=== PATIENT | male | born 1995 | race Caucasian/White ===

== ENCOUNTER 2016-12-11 16:50 | Emergency (ER) | payer OTHER ==
[2016-12-11 16:55] VITALS: BP 139/84
[2016-12-11] MEDS ORDERED: DEXAMETHASONE 10 MG/ML VIAL PO STA (17:07)
[2016-12-11] MEDS ORDERED: DEXAMETHASONE 10 MG/ML VIAL ONE (17:09)
--- NOTE | 2016-12-11 17:10 | ED Physician Documentation ---
PD HPI HEENT - Stated complaint Stated Complaint: R EAR PX - Chief complaint Chief Complaint: Heent - History obtained from History obtained from: Patient - History of Present Illness Timing - onset: How many days ago (4) Timing - duration: Days (4) Timing - details: Gradual onset, Still present Location: Right ear Worsens: Position Associated symptoms: Congestion, Rhinorrhea, Other (ear will not equalize and there is random dizziness) Similar symptoms before: Has not had sx before Recently seen: Not recently seen - Additional information Additional information: 21 y/o male began with a fullness to the right ear and it will pop but only for a brief time. He has some muffled hearing and he does not have much of a cough. He does have some drainage down his throat. Review of Systems Constitutional: reports: Chills, Fatigue. denies: Fever Eyes: denies: Decreased vision Ears: reports: Ear pain, Tinnitus/ringing Nose: reports: Rhinorrhea / runny nose, Congestion Throat: denies: Sore throat Cardiac: denies: Chest pain / pressure, Palpitations Respiratory: reports: Cough. denies: Dyspnea GI: denies: Abdominal Pain, Nausea, Vomiting : denies: Dysuria, Frequency Skin: denies: Rash Musculoskeletal: denies: Neck pain, Back pain, Extremity pain PD PAST MEDICAL HISTORY - Past Medical History Past Medical History: Yes Psych: ADD/ADHD - Past Surgical History Past Surgical History: Yes - Present Medications Home Medications: Ambulatory Orders Medication Instructions Recorded Confirmed Azithromycin [Zithromax] 250 mg PO DAILY #6 tablet 12/11/16 - Allergies Allergies/Adverse Reactions: Allergies Allergy/AdvReac Type Severity Reaction Status Date / Time No Known Drug Allergies Allergy Verified 12/11/16 16:55 - Social History Does the pt smoke?: Yes Smoking Status: Current every day smoker Does the pt drink ETOH?: No Does the pt have substance abuse?: No - Immunizations Immunizations are current?: Yes PD ED PE NORMAL - Vitals Vital signs reviewed: Yes (hypertensive) - General General: Alert and oriented X 3, No acute distress, Well developed/nourished - HEENT HEENT: Atraumatic, PERRL, EOMI, Pharynx benign, Dentition benign, Other (The right TM is mildly inflamed in the basement. The left is clear. ) - Neck Neck: Supple, no meningeal sign, No bony TTP - Cardiac Cardiac: RRR, No murmur - Respiratory Respiratory: No respiratory distress, Clear bilaterally - Abdomen Abdomen: Soft, Non tender - Derm Derm: Normal color, Warm and dry, No rash - Extremities Extremities: No deformity, No edema - Neuro Neuro: No motor deficit, No sensory deficit - Psych Psych: Normal mood, Normal affect Results - Vitals Vitals: Vital Signs - 24 hr 12/11/16 16:53 Temperature 36.3 C L Heart Rate 88 Respiratory 18 Rate Blood Pressure 139/84 H O2 Saturation 99 Oxygen O2 Source Room air PD MEDICAL DECISION MAKING - ED course Complexity details: considered differential, d/w patient ED course: 21 y/o male with symptomatic right OM and this does not appear to be a dense infection. He is treated with decadron 10mg PO and we will put him on some zithromax. Departure - Departure Disposition: 01 Home, Self Care Clinical Impression: Otitis media Qualifiers: Otitis media type: suppurative Laterality: right Chronicity: acute Recurrence: not specified as recurrent Spontaneous tympanic membrane rupture: without spontaneous rupture Qualified Code(s): H66.001 - Acute suppurative otitis media without spontaneous rupture of ear drum, right ear Condition: Stable Instructions: ED Otitis Media Acute Adult Follow-Up: Clay Roth MD [Primary Care Provider] - Prescriptions: Azithromycin [Zithromax] 250 mg PO DAILY #6 tablet Comments: Today in the Emergency Department your blood pressure was elevated. This can happen from the stress of the visit itself, from a current illness or circumstance or from uncontrolled hypertension. If you take blood pressure medications take your usual mediations, have your blood pressure re-checked in an appropriate setting and follow up any elevation with your primary care doctor.
== END 2016-12-11 17:17 | disposition home or self-care (01) ==
LOC: ED 16:50
DX: H66.001 Acute suppurative otitis media without spontaneous rupture of ear drum, right ear (principal); F17.200 Nicotine dependence, unspecified, uncomplicated
CPT/HCPCS: 99283

== ENCOUNTER 2017-01-29 13:44 | Outpatient (CLI) | payer OTHER ==
--- NOTE | 2017-01-29 16:42 | MRI Report ---
EXAM: LEFT CALF/TIBIA MRI WITHOUT CONTRAST EXAM DATE: 01/29/2017 03:13 PM. CLINICAL HISTORY: Left jimenez pain after increased activity. COMPARISON: None. TECHNIQUE: Multiplanar, multisequence T1-weighted and fluid-sensitive sequences of the calf/tibia wit hout contrast. Other: None. FINDINGS: Bones: Marrow signal intensity appears normal. There is increased T2 signal along the medial aspect o f the tibia over its middle third, consistent with jimenez splints. Joint Spaces: Visualized portions of the ankle and knee joints are unremarkable. Tendons: Where visualized, the Achilles and plantaris tendons are intact. Musculature: No edema or fatty atrophy. Other: See above. IMPRESSION: Findings consistent with jimenez splints. No stress fracture. No muscle tear. [facility] MUSCULOSKELET[facility] SECTION Referring Provider Line: [phone] SITE ID: [id number]
== END 2017-01-29 13:45 | disposition home or self-care (01) ==
LOC: DI 13:44
PROVIDERS: ATTEND Orthopaedic Surgery
DX: M79.662 Pain in left lower leg (principal)

== ENCOUNTER 2017-07-16 09:01 | Emergency (ER) | payer OTHER ==
--- NOTE | 2017-07-16 09:20 | ED Physician Documentation ---
PD HPI HEADACHE - Stated complaint Stated Complaint: MIGRAINE - Chief complaint Chief Complaint: General - History obtained from History obtained from: Patient - History of Present Illness Timing - onset: How many days ago (5) Timing - onset during: Light activity Timing - duration: Days (5) Timing - details: Gradual onset, Still present Worst headache ever?: Worst headache ever? (has had similar headaches for few hours or part of a day. No prior similar that lasts this long.) Location: Back, Right Quality: Throbbing Associated symptoms: Nausea. No: Fever, Stiff neck, Vomiting, Weakness, Numbness, Eye pain, Vision changes Improved by: Rest, Dark room. No: Meds Worsened by: Light, Noise, Moving Contributing factors: No: Anticoagulated, Hypertension, Recent illness, Trauma Similar symptoms before: Has not had sx before Recently seen: Not recently seen Review of Systems Constitutional: denies: Fever, Chills Eyes: reports: Photophobia. denies: Loss of vision, Decreased vision Ears: denies: Loss of hearing, Ear pain, Drainage/discharge Nose: denies: Rhinorrhea / runny nose, Congestion Throat: denies: Sore throat Respiratory: denies: Cough GI: denies: Abdominal Pain, Nausea, Vomiting, Diarrhea : denies: Dysuria, Frequency Skin: denies: Rash, Lesions Neurologic: reports: Headache. denies: Focal weakness, Numbness, Difficulty speaking, Confused, Altered mental status, Head injury PD PAST MEDICAL HISTORY - Past Medical History Past Medical History: Yes Neuro: None Psych: ADD/ADHD - Past Surgical History Past Surgical History: Yes - Present Medications Home Medications: Ambulatory Orders Medication Instructions Recorded Confirmed Dexamethasone [Decadron] 4 mg PO DAILY #5 tablet 07/16/17 HYDROcod/ACETAM 5/325 [[place] 5/325] 1 tab PO Q6H PRN #12 tablet 07/16/17 Promethazine [Phenergan] 25 mg PO Q6H PRN #15 tab 07/16/17 Sumatriptan Succinate [Imitrex] 50 mg PO ONCE PRN #5 tablet 07/16/17 - Allergies Allergies/Adverse Reactions: Allergies Allergy/AdvReac Type Severity Reaction Status Date / Time No Known Drug Allergies Allergy Verified 07/16/17 09:13 - Social History Does the pt smoke?: Yes Smoking Status: Current every day smoker Does the pt drink ETOH?: No Does the pt have substance abuse?: No - Immunizations Immunizations are current?: Yes PD ED PE NORMAL - Vitals Vital signs reviewed: Yes - General General: Alert and oriented X 3, No acute distress, Well developed/nourished - HEENT HEENT: Atraumatic, PERRL, EOMI, Ears normal, Pharynx benign - Neck Neck: Supple, no meningeal sign, No adenopathy - Cardiac Cardiac: RRR, No murmur - Respiratory Respiratory: Clear bilaterally - Derm Derm: Normal color, Warm and dry, No rash - Extremities Extremities: No deformity, No tenderness to palpate, Normal ROM s pain - Neuro Neuro: Alert and oriented X 3, 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 Got CT head for screening. No red flags otherwise. ) Departure - Departure Disposition: 01 Home, Self Care Clinical Impression: Migraine headache Qualifiers: Migraine type: without aura Status migrainosus presence: with status migrainosus Intractability: not intractable Qualified Code(s): G43.001 - Migraine without aura, not intractable, with status migrainosus Condition: Stable Record reviewed to determine appropriate education?: Yes Instructions: ED Headache Migraine Follow-Up: Clay Roth MD [Primary Care Provider] - Prescriptions: Dexamethasone [Decadron] 4 mg PO DAILY #5 tablet HYDROcod/ACETAM 5/325 [[place] 5/325] 1 tab PO Q6H PRN #12 tablet PRN Reason: Pain Promethazine [Phenergan] 25 mg PO Q6H PRN #15 tab PRN Reason: Nausea / Vomiting Sumatriptan Succinate [Imitrex] 50 mg PO ONCE PRN #5 tablet PRN Reason: Migraine Comments: This sounds like a migraine headache. Rest today and tomorrow for the remainder of the headache to improve. Use Decadron anti-inflammatory daily for 3-5 more days until completely better. Use Phenergan if needed for nausea. Add Tylenol or hydrocodone if needed for pain. Recheck if current headache does not resolve completely over the next 1-2 days. For future migraines, use Excedrin Migraine or similar type medicine initially. If not improved with that and combine Phenergan along with the Imitrex (sumatriptan) which both target migraine specifically as well as help with nausea. See if those help you with future episodes. It would be unpredictable when or if you get further migraines in the future. Forms: Activity restrictions Discharge Date/Time: 07/16/17 11:18
[2017-07-16] MEDS ORDERED: DEXAMETHASONE 10 MG/ML VIAL PO STA (09:48)
[2017-07-16] MEDS ORDERED: PROMETHAZINE 25 MG TABLET PO STA (09:48)
[2017-07-16] MEDS ORDERED: HYDROcod/ACETAM 5/325 MG TABLET PO STA (09:48)
--- NOTE | 2017-07-16 10:31 | CT Report ---
EXAM: CT HEAD EXAM DATE: 07/16/2017 10:05 AM. CLINICAL HISTORY: Headache for 3-4 days. COMPARISON: None. TECHNIQUE: Multiaxial CT images were obtained from the foramen magnum to the vertex. Reformats: Coron al. IV contrast: None. In accordance with CT protocol optimization, one or more of the following dose reduction techniques w ere utilized for this exam: automated exposure control, adjustment of mA and/or KV based on patient s ize, or use of iterative reconstructive technique. FINDINGS: Parenchyma: No intraparenchymal hemorrhage. No focal mass effect, midline shift, or CT findings of ac juventino infarction. Duff-white differentiation is distinct. Extraaxial Spaces: Normal. No subdural or epidural collections identified. Ventricles: Normal in size and position. Sinuses and Orbits: Imaged paranasal sinuses, orbits, and mastoids show no significant abnormality. Bones: No evidence of fracture or calvarial defect. IMPRESSION: 1. Negative noncontrast brain CT. No intracranial hemorrhage or space-occupying lesion. 2. Clear visualized paranasal sinuses. [facility] Referring Provider Line: [phone] SITE ID: [id number]
[2017-07-16 10:40] VITALS: BP 120/84
== END 2017-07-16 11:18 | disposition home or self-care (01) ==
LOC: ED 09:01
DX: H53.149 Visual discomfort, unspecified (principal); G43.001 Migraine without aura, not intractable, with status migrainosus; F17.200 Nicotine dependence, unspecified, uncomplicated
CPT/HCPCS: 70450; 99283; 99284; A9270; Q0169

== ENCOUNTER 2021-11-28 08:00 | Outpatient (CLI) | payer OTHER | END 2021-11-28 23:59 | disposition home or self-care (01) | LOC: LAB.N 08:00 | PROVIDERS: ATTEND Nurse Practitioner | DX: J06.9 Acute upper respiratory infection, unspecified (principal); Z20.822 Contact with and (suspected) exposure to COVID-19 ==

== ENCOUNTER 2023-08-26 13:30 | Outpatient (CLI) | payer OTHER ==
[2023-08-26 17:50] LABS: BASOPHILS % (AUTO) 0.3 %; EOSINOPHILS # (AUTO) 0.1 10^3/uL (0.0-0.7); EOSINOPHILS % (AUTO) 2.1 %; HGB - HEMOGLOBIN 15.8 g/dL (14.0-18.0); LYMPHOCYTES # (AUTO) 2.2 10^3/uL (1.5-3.5); LYMPHOCYTES % (AUTO) 34.3 %; MEAN CORPUSCULAR HGB CONC 33.6 g/dL (32.0-36.0); MEAN CORPUSCULAR VOLUME 89.4 fL (80.0-94.0); MEAN PLATELET VOLUME 10.1 fL (7.4-11.4); MONOCYTES # (AUTO) 0.5 10^3/uL (0.0-1.0); MONOCYTES % (AUTO) 8.2 %; NEUTROPHILS # (AUTO) 3.5 10^3/uL (1.5-6.6); NEUTROPHILS % (AUTO) 54.9 %; PLT - PLATELET COUNT 290 10^3/uL (130-450); RED BLOOD COUNT 5.26 10^6/uL (4.70-6.10); RED CELL DISTRIBUTION WIDTH 12.6 % (12.0-15.0); WHITE BLOOD COUNT 6.3 x10^3/uL (4.8-10.8)
[2023-08-26 18:12] LABS: ALBUMIN 4.5 g/dL (3.2-5.5); ALBUMIN/GLOBULIN RATIO 1.6 (1.0-2.2); BILIRUBIN,TOTAL 0.6 mg/dL (0.2-1.0); CALCIUM 9.9 mg/dL (8.5-10.3); CREATININE 0.9 mg/dL (0.6-1.3); POTASSIUM 4.1 mmol/L (3.5-4.5); TOTAL PROTEIN 7.3 g/dL (6.4-8.9)
[2023-08-26 18:13] LABS: THYROID STIMULATING HORMONE 1.9 uIU/mL (0.34-5.60)
== END 2023-08-26 13:45 | disposition home or self-care (01) ==
LOC: LAB.N 13:30
PROVIDERS: ATTEND Family Medicine
DX: R42 Dizziness and giddiness (principal); R00.2 Palpitations
CPT/HCPCS: 36415; 80053; 84443; 85025; 85651

== ENCOUNTER 2023-09-20 08:25 | Outpatient (CLI) | payer OTHER ==
--- NOTE | 2023-09-20 11:43 | MRI Report ---
PROCEDURE: Brain WO INDICATIONS: DIZZINESS TECHNIQUE: Noncontrast axial T1 spin echo, axial T2 fast spin echo, sagittal and axial FLAIR, coronal T2 fast sp in echo, axial gradient echo, axial diffusion and ADC through the brain. COMPARISON: CT head 07/16/2017. FINDINGS: Image quality: Excellent. CSF Spaces: Basal cisterns are patent. No extra-axial fluid collections. Ventricles are normal in size and shape. Brain: No intracranial masses or hemorrhage. Duff/white matter interface is normal. Brainstem appe ars normal. Diffusion-weighted images demonstrate no acute ischemic insult. No chronic ischemic ins ults. Normal intravascular flow voids are present. Skull and face: Calvarium has normal marrow signal. Orbits appear normal. Sinuses: Sinuses and mastoids are clear. IMPRESSION: No findings to explain patient's symptoms. No acute intracranial abnormalities. Reviewed by: Elliott Avendano MD on 09/20/2023 11:42 AM PDT Approved by: Elliott Avendano MD on 09/20/2023 11:42 AM PDT Station ID: [id number]
== END 2023-09-20 08:26 | disposition home or self-care (01) ==
LOC: DI 08:25
PROVIDERS: ATTEND Preventive Medicine Aerospace Medicine
DX: R42 Dizziness and giddiness (principal)

== ENCOUNTER 2024-02-18 17:27 | Emergency (ER) | payer OTHER ==
--- NOTE | 2024-02-18 18:13 | XRAY Report ---
PROCEDURE: Chest 1V INDICATIONS: Chest pain TECHNIQUE: One view of the chest was acquired. COMPARISON: None. FINDINGS: Surgical changes and devices: None. Lungs and pleura: No pleural effusions or pneumothorax. Lungs are clear. Mediastinum: Mediastinal contours appear normal. Heart size is normal. Bones and chest wall: No suspicious bony lesions. Overlying soft tissues appear unremarkable. IMPRESSION: No acute cardiopulmonary process. Reviewed by: Carter Koehler MD on 02/18/2024 6:11 PM PDT Approved by: Carter Koehler MD on 02/18/2024 6:11 PM PDT Station ID: [id number]
[2024-02-18 18:28] LABS: BASOPHILS % (AUTO) 0.5 %; EOSINOPHILS # (AUTO) 0.1 10^3/uL (0.0-0.7); EOSINOPHILS % (AUTO) 1.7 %; HCT - HEMATOCRIT 44.9 % (42.0-52.0); HGB - HEMOGLOBIN 15.7 g/dL (14.0-18.0); LYMPHOCYTES # (AUTO) 2.4 10^3/uL (1.5-3.5); LYMPHOCYTES % (AUTO) 29.7 %; MEAN CORPUSCULAR HEMOGLOBIN 30.2 pg (27.0-31.0); MEAN CORPUSCULAR VOLUME 86.3 fL (80.0-94.0); MEAN PLATELET VOLUME 9.5 fL (7.4-11.4); MONOCYTES # (AUTO) 0.8 10^3/uL (0.0-1.0); MONOCYTES % (AUTO) 10.3 %; NEUTROPHILS # (AUTO) 4.7 10^3/uL (1.5-6.6); NEUTROPHILS % (AUTO) 57.6 %; PLT - PLATELET COUNT 321 10^3/uL (130-450); RED CELL DISTRIBUTION WIDTH 12.4 % (12.0-15.0); WHITE BLOOD COUNT 8.2 x10^3/uL (4.8-10.8)
[2024-02-18 18:50] LABS: TROPONIN I HIGH SENSITIVITY < 2.3 ng/L (2.3-19.7)
[2024-02-18 18:51] LABS: ALBUMIN 4.5 g/dL (3.2-5.5); ALBUMIN/GLOBULIN RATIO 1.5 (1.0-2.2); ALKALINE PHOSPHATASE 61 IU/L (42-121); ALT ALANINE AMINOTRANSFERASE 27 IU/L (10-60); AST ASPARTATE AMINOTRANSFERASE 16 IU/L (10-42); BILIRUBIN,TOTAL 0.4 mg/dL (0.2-1.0); BUN - BLOOD UREA NITROGEN 12 mg/dL (6-20); CALCIUM 9.5 mg/dL (8.5-10.3); CARBON DIOXIDE - CO2 26 mmol/L (21-32); CHLORIDE 105 mmol/L (101-111); CREATININE 0.8 mg/dL (0.6-1.3); GFR - MDRD 114 (>89); GLUCOSE 88 mg/dL (74-104); LIPASE 41 U/L (11-82); POTASSIUM 3.8 mmol/L (3.5-4.5); SODIUM 138 mmol/L (135-145); TOTAL PROTEIN 7.5 g/dL (6.4-8.9)
[2024-02-18 18:55] VITALS: O2SAT 98
--- NOTE | 2024-02-18 19:04 | ED Physician Documentation ---
PD HPI CHEST PAIN - Stated complaint Stated Complaint: CHEST PX - Chief complaint Chief Complaint: Cardiac - Additional information Additional information: 28-year-old male with history of hypertension, depression, ADD/ADHD presents emergency department for chest pain. Patient says that he was sitting at home around 1400 watching TV and felt sudden onset chest pain. He attempted to walk around to see if it would go away and then he started experiencing some shortness of breath which led him to come to the emergency department. Patient also says that he send struggling with chronic headache for about the last 2 months he has been seen by his primary care provider but has not found a solution to this. He is on Wellbutrin for his depression and also reports that he has had a severe increase in anxiety over the last few months that is not normal for him.No unilateral leg tenderness or pain. PD PAST MEDICAL HISTORY - Past Medical History Cardiovascular: Hypertension Psych: Depression, ADD/ADHD Other Past Medical History: insomnia - Past Surgical History Past Surgical History: Yes - Present Medications Home Medications: Ambulatory Orders Medication Instructions Recorded Confirmed Losartan [Cozaar] 50 mg PO DAILY 02/18/24 02/18/24 buPROPion HCL [Wellbutrin Xl] 300 mg PO DAILY 02/18/24 02/18/24 hydrOXYzine pamoate [Hydroxyzine 25 mg PO TID PRN 7 Days #21 cap 02/18/24 Pamoate] - Allergies Allergies/Adverse Reactions: Allergies Allergy/AdvReac Type Severity Reaction Status Date / Time fluoxetine [From Prozac] Allergy Hives Verified 02/18/24 17:44 - Social History Does the pt smoke?: Yes Smoking Status: Current every day smoker Does the pt drink ETOH?: No Does the pt have substance abuse?: No - Immunizations Immunizations are current?: Yes PD ED PE NORMAL - Vitals Vital signs reviewed: Yes - General General: Alert and oriented X 3, No acute distress, Well developed/nourished - HEENT HEENT: Atraumatic, PERRL - Neck Neck: Supple, no meningeal sign - Cardiac Cardiac: RRR - Respiratory Respiratory: No respiratory distress, Clear bilaterally - Abdomen Abdomen: Normal bowel sounds, Soft, Non tender, No organomegaly - Extremities Extremities: No deformity, No edema, No calf tenderness / cord Results - Vitals Vitals: Oxygen O2 Source Room air - Labs Labs: Laboratory Tests 02/18/24 02/18/24 18:19 18:19 WBC 8.2 RBC 5.20 Hgb 15.7 Hct 44.9 MCV 86.3 MCH 30.2 MCHC 35.0 RDW 12.4 Plt Count 321 MPV 9.5 Neut # (Auto) 4.7 Lymph # (Auto) 2.4 [place] # (Auto) 0.8 Eos # (Auto) 0.1 Baso # (Auto) 0.0 Absolute Nucleated RBC 0.00 Nucleated RBC % 0.0 Sodium 138 Potassium 3.8 Chloride 105 Carbon Dioxide 26 Anion Gap 7.0 BUN 12 Creatinine 0.8 Estimated GFR (MDRD) 114 Glucose 88 Calcium 9.5 Total Bilirubin 0.4 AST 16 ALT 27 Alkaline Phosphatase 61 Troponin I High Sens < 2.3 L Total Protein 7.5 Albumin 4.5 Globulin 3.0 Albumin/Globulin Ratio 1.5 Lipase 41 - Rads (name of study) Chest x-ray Relevant Findings:: Final report received, EMP independent interpretation of test, Other (No acute cardiopulmonary abnormalities) PD Medical Decision Making - ED course ED course: Exam without evidence of volume overload so doubt heart failure. EKG without signs of active ischemia. Given the timing of pain to ER presentation, single troponin was negative so doubt NSTEMI. Presentation not consistent with acute PE (PERC negative),pneumothorax (not visualized on chest xr), thoracic aortic dissection, pericarditis, tamponade, pneumonia (no infectious symptoms, clear chest xr), myocarditis (no recent illness, neg trop). HEART score:2 so plan to discharge patient home with PCP follow up. Departure - Departure Disposition: 01 Home, Self Care Clinical Impression: Chest pain Instructions: Anxiety Body Response, ED Chest Pain Atypical Unkn Cause Prescriptions: hydrOXYzine pamoate [Hydroxyzine Pamoate] 25 mg PO TID PRN 7 Days #21 cap PRN Reason: Anxiety Comments: Thank you for trusting us with your care. We have given you a dose of hydroxyzine here in the emergency department see if this can help with your acute anxiety as well as a shot of Toradol to help with your chronic migraines that you are experiencing. Continue what you have been doing, exercise, improving your diet, and see if you are able to follow-up with someone to get some help and support for your anxiety. Please fill with your primary care provider to let them know about today's ER visit. Please come back to the ER if you have any worsening chest pain shortness of breath or any other concerning emergent symptoms. Forms: PCP List Discharge Date/Time: 02/18/24 19:23
[2024-02-18] MEDS: hydrOXYzine PAMOATE 25 MG CAPSULE PO STA (19:10)
[2024-02-18] MEDS: KETOROLAC 30 MG/ML VIAL IM STA (19:11)
[2024-02-18 19:26] VITALS: BP 138/97
== END 2024-02-18 19:23 | disposition home or self-care (01) ==
LOC: ED 17:27
DX: R07.9 Chest pain, unspecified (principal); F41.9 Anxiety disorder, unspecified; F32.A Depression, unspecified; F17.200 Nicotine dependence, unspecified, uncomplicated; Z79.899 Other long term (current) drug therapy
CPT/HCPCS: 36415; 71045; 80053; 83690; 84484; 85025; 93005; 96372; 99284; A9270

== ENCOUNTER 2024-03-26 14:58 | Outpatient (CLI) | payer OTHER ==
--- NOTE | 2024-03-26 15:27 | Sleep Patient Instructions ---
Sleep Center Visit Summary - Patient Visit Information Reason for Visit: Initial consult for evaluation of sleep disordered breathing and other sleep issues. - Patient Instructions Instructions Attached: Sleep Study Additional Instructions: You will be completing a sleep study, either an in-lab polysomnography (PSG) or home sleep study (HST). You will follow-up in the sleep care office after the sleep study is completed to hear the results and talk about therapy, if needed. You will be called by our office staff to schedule this appointment, but you may contact us with any questions. - Clinic Information Contact: [facility] [address] [place] [address] [email or web address] T: [phone]
--- NOTE | 2024-03-26 15:33 | SLEEP CARE CONSULTATION ---
Information from patient questionnaire entered by Marvin Martinez. I have reviewed and concur with the information entered by Marvin Martinez. This document represents the service I personally performed and the decisions made by me, Amee Underwood ARNP. History of Present Illness Service Date and Time: 03/26/2024 1458 Reason for Visit: New patient, Other (POSSIBLE SLEEP APNEA) Usual bedtime: 2955-8899 Time it takes to fall asleep: 30MINS - 2HRS Snores at night: Yes Observed to quit breathing while asleep: No Sleeps alone due to snoring: No Number of times waking at night: 1-3 Reasons for waking at night: reports: Other (UNKNOWN). denies: Choking, Gasping for air Toss, Turn, or Twitch while sleeping: Yes Recalls having dreams: No Usually gets out of bed at: [id number] Feels refreshed in the morning: No Morning headache: No Sleepy or fatigued during the day: Yes Ever fallen asleep while driving: No Takes day naps: Yes (tries not to nap; may get one 2-3 times a month) Dreams during day naps: No Prior sleep studies: No Additional HPI information: I had the pleasure of seeing ML GRANDA today regarding the possibility of him having a sleep disorder. His doctor thinks he might have sleep apnea causing his high blood pressure which causes headaches. He says his has told him he snores but he says he has always snored. He states that it can take him 30 minutes to 2 hours to fall asleep. He will wake up several times for unknown reasons. He denies waking up gasping for air of feeling like he is choking. He will sometimes take an Ambien 6.5 mg for sleep but he tries not to take it often to reduce his reliance on medication. 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 - Parasomnia Symptoms Ever been unable to move upon waking from sleep: No Walks in sleep: No Talks in sleep: No Ever acted out dreams in sleep: No Ever felt weak in the knees when startled or emotional: No Bothered by creepy, crawly, restless sensations in legs: No Problems with memory or concentration: No Subjective Initial Muse Sleepiness Scale score: 9 (03/26/24) Past Medical History Past Medical History: reports: Hypertension, Depression, Attention deficit, Other (INSOMNIA) Social History The patient's occupation is a AM. Patient is and lives in [place]. Have you smoked in the past 12 months: Yes (vaping 6 mg) Years of smokin Quit date: 02/2024 Alcohol use: Yes Alcohol amount and frequency: 1-3 DRINKS 1-2 A WEEK OR LESS- socially Caffeine use: Yes Caffeine amount and frequency: 1-2 OF COFFEE 3-4 TIMES A WEEK Family History Family history of sleep disordered breathing: No Allergies and Home Medications Known drug allergies: Yes (PROZAC) Drug allergies reviewed: Yes Home medication list reviewed: Yes (as listed) Allergy and home medication list: Allergies fluoxetine [From Prozac] Allergy (Verified 03/26/24 14:59) Hives Home Medications Medication Instructions Recorded Confirmed Last Taken Type Losartan [Cozaar] 50 mg PO DAILY 02/18/24 03/26/24 Unknown History buPROPion HCL [Wellbutrin Xl] 300 mg PO DAILY 02/18/24 03/26/24 Unknown History Cholecalciferol (Vitamin D3) See Rx Instructions .ROUTE .COMPLEX 03/26/24 03/26/24 Unknown History [Vitamin D3] Zolpidem Tartrate [Ambien] See Rx Instructions .ROUTE .COMPLEX 03/26/24 03/26/24 Unknown History will be changing to Amlodipine in a week Review of Systems Weight loss over past 5 years: 40 Cardiovascular: reports: high blood pressure Gastrointestinal: denies: heartburn Neurological: denies: headaches Psychiatric: reports: Attention Deficit Hyperactivity, depression, other (INSOMNIA) Ear/Nose/Throat: reports: wisdom teeth removed. denies: tonsillectomy Physical Exam Vital signs obtained and entered by: MARVIN Zhu MA Blood Pressure: 135/81 (LEFT ARM) Cuff size: long Heart Rate: 76 O2 Saturation: 96 Height: 5 ft 7 in Weight: 248 lb 12.8 oz Body Mass Index: 38.9 BMI Classification: Obese Neck circumference: 17.25 Mouth and throat: narrow oropharynx Soft palate: long Hard palate: normal Uvula: normal Uvula visualization: 25% Mallampati Class III Tongue: enlarged in size with teeth garcia on lateral edges Tonsils: small Neck: normal w/o lymphadenopathy or thyromegaly Heart: regular rate and rhythm Lungs: clear bilaterally Impression and Plan 1. Suspected Obstructive Sleep Apnea-Hypopnea Syndrome, as suggested by a history of irregular snoring, unrefreshed sleep, insomnia and excessive daytime sleepiness. Narrow oropharynx and obesity are common predisposing factors for obstructive sleep apnea-hypopnea syndrome. I recommend proceeding to polysomnography to confirm the diagnosis and to assess severity. If the patient has significant sleep disordered breathing, a manual CPAP titration study will also be performed to find the optimal treatment pressure. I informed the patient of what the sleep studies involve and after some discussion, obtained agreement to proceed. The pathophysiology of obstructive sleep apnea-hypopnea syndrome was discussed with the patient and health risks of cardiovascular and cerebrovascular disease if not treated. Risks of drowsy driving discussed in detail and patient advised to avoid long distance driving and to rack puller at the first sign of drowsiness. Patient agreed to plan. * Schedule polysomnography * Avoid long distance driving or driving when feeling sleepy. * Avoid alcohol, sedative and muscle relaxant around bedtime. * Attempt to lose weight. * Review instructions provided by trained office staff on how to prepare for the sleep study. * Return for follow-up after sleep study completed. Counseling Topics: Weight loss health impact Plan: sleep study and follow up Visit Type: In Office Time Spent with Patient (minutes): 30 Provider Statement: I spent 100% of the Face to Face Visit with the patient with greater than 50% spent counseling the patient and coordination of care.
[2024-03-26 15:36] VITALS: BP 135/81; O2SAT 96
== END 2024-03-26 14:59 | disposition home or self-care (01) ==
LOC: SC 14:58
PROVIDERS: ATTEND Nurse Practitioner Family
DX: R06.83 Snoring (principal); G47.8 Other sleep disorders; G47.00 Insomnia, unspecified; G47.10 Hypersomnia, unspecified; E66.9 Obesity, unspecified; Z68.38 Body mass index [BMI] 38.0-38.9, adult; Z87.891 Personal history of nicotine dependence; R03.0 Elevated blood-pressure reading, without diagnosis of hypertension; R51.9 Headache, unspecified
CPT/HCPCS: 99203; 99212